=== PATIENT | male | born 1965 | race African-American/Black ===

== ENCOUNTER → 2018-09-07 | Day surgery (SDC) | payer MEDICARE, OTHER ==
[~2018-09-07] MED LIST: ATORVASTATIN PO; CITALOPRAM PO; CYCLOBENZAPRINE10 MG PO; FELODIPINE ER10 MG PO; FENTANYL CITRATE/PF 100MCG/2 ML INJ ONE; FUROSEMIDE40 MG PO; GABAPENTIN PO; HYOSCYAMINE SULFATE 0.5 MG/ML INJ ONE; LANTUS 3ML100 UNITS/ SQ; LIDOCAINE HCL 2% LOCAL INJ 5 ML SDV VIAL INJ ONE; MIDAZOLAM HCL 2 MG/2 ML VIAL ONE; NOVOLOG MI100 UNIT/1 SQ; PHENYLEPHRINE HCL 1% 10 MG/ML VIAL ONE; POTASSIUM CHLO20 ME1 PO; PROPOFOL IV EMULSION 10 MG/ML 50 ML VIAL ONE
--- OUTSIDE RECORDS SUMMARY | 2018-09-07 08:56 | XMS REPORT | Clinical Summary ---
Author Author [facility]uy [facility]anda[facility] Organization [facility] Address Unknown Phone Unavailable Care Team Providers Care Mangle Roller Name Role Phone Collette Valentino MD PCP Allergies Comments Active Allergy Reactions Severity Noted Date Lisinopril Anaphylaxis High 02/28/2017 Sulfa (Sulfonamide Anaphylaxis High 02/16/2017 Antibiotics) Medications End Date Status Medication Sig Dispensed Refills Start Date Active insulin ASPART (NovoLOG) Inject 40 0 100 unit/mL injection Units under the skin 3 (three) times a day before meals. Active gabapentin (NEURONTIN) Take 600 mg 0 600 mg tablet by mouth 3 (three) times a day. Active aspirin (ECOTRIN) 81 MG Take 81 mg by 0 enteric coated tablet mouth daily. Active cyclobenzaprine Take 10 mg by 0 (FLEXERIL) 10 mg tablet mouth 3 (three) times a day as needed for muscle spasms. Active oxyCODone (ROXICODONE) 15 Take 15 mg by 0 MG immediate release mouth 3 tablet (three) times a day as needed for moderate pain. Active atorvastatin (LIPITOR) 20 Take 20 mg by 0 MG tablet mouth nightly. Default OP ins Active cholecalciferol, vitamin Take 1,000 0 D3, (VITAMIN D3) 1,000 Units by unit tablet mouth daily. Active amLODIPine (NORVASC) 10 Take 10 mg by 0 mg tablet mouth every morning. Active furosemide (LASIX) 20 mg Take 20 mg by 0 tablet mouth 2 (two) times a day. Active insulin GLARGINE (LANTUS) Inject 60 0 100 unit/mL injection Units under (vial) the skin 2 (two) times a day. Active valsartan (DIOVAN) 40 MG Take 40 mg by 0 tablet mouth daily. Active losartan (COZAAR) 100 MG Take 100 mg 0 tablet by mouth 8 daily. 09/17/2018 Active insulin lispro (HumaLOG Inject 40 10 mL 0 U-100 Insulin) 100 Units under 9 unit/mL injection the skin 3 (three) times a day before meals for 30 days. 09/26/2017 Discontinued felodipine (PLENDIL) 10 Take 10 mg by 0 MG 24 hr tablet mouth daily. 09/26/2017 Discontinued citalopram (CeleXA) 20 MG Take 20 mg by 0 tablet mouth every morning. 10/26/2017 citalopram (CeleXA) 40 MG Take 1 tablet 30 tablet 0 tablet (40 mg total) 8 by mouth daily for 30 days. 04/12/2018 furosemide (LASIX) 40 mg Take 1 tablet 60 tablet 0 tablet (40 mg total) 8 by mouth 2 (two) times a day for 30 days. 06/23/2018 cephalexin (KEFLEX) 500 Take 1 28 capsule 0 MG capsule capsule (500 8 mg total) by mouth 4 (four) times a day for 7 days. 07/06/2018 clindamycin (CLEOCIN HCL) Take 1 40 capsule 0 300 MG capsule capsule (300 8 mg total) by mouth 4 (four) times a day for 10 days. 07/01/2018 methylPREDNISolone follow 21 tablet 0 (MEDROL DOSEPAK) 4 mg package 8 tablet directions Active Problems Problem Noted Date Chest pain 09/26/2017 Acute kidney injury 02/26/2017 Gastrointestinal hemorrhage associated with gastritis 02/17/2017 Rectal bleeding 01/18/2017 Encounters Care Team Description Date Type Specialty Tara Cox MD Rectal bleed (Primary Dx); Hyperglycemia 08/18/2018 Emergency Emergency Medicine Israel Heart MD Cellulitis, lip (Primary Dx); Angioedema of lips, initial encounter 06/26/2018 Emergency Emergency Medicine Singh Calvin MD Cellulitis of abdominal wall (Primary Dx); Abnormal CT scan 06/16/2018 Emergency Emergency Medicine Dinorah Portillo MD Lymphedema (Primary Dx); Essential hypertension 03/13/2018 Emergency Emergency Medicine Tamara Patterson DO Hyperglycemia (Primary Dx); Rectal bleeding 12/15/2017 Emergency Emergency Medicine Rob Abbasi MD Jamaluddin, Ahmed U., MD Chest pain, unspecified type (Primary Dx) 09/26/2017 Emergency General Internal Medicine after 09/06/2017 Family History Medical History Relation Name Comments Diabetes Maternal Grandfather Hypertension Maternal Grandfather Diabetes Maternal Grandmother Hypertension Maternal Grandmother Diabetes Mother Kidney disease Mother Stroke Mother Diabetes Paternal Grandfather Diabetes Paternal Grandmother Relation Name Status Comments Maternal Grandfather Maternal Grandmother Mother Paternal Grandfather Paternal Grandmother Social History Date Tobacco Use Types Packs/Day Years Used Quit: 02/16/2013 Former Smoker Cigarettes 0.5 30 Smokeless Tobacco: Never Used Alcohol Use Drinks/Week oz/Week Comments No Sex Assigned at Date Recorded Not on file Industry Job Start Date Occupation Not on file Not on file Not on file Travel End Travel History Travel Start No recent travel history available. Last Filed Vital Signs Time Taken Vital Sign Reading 08/18/2018 5:54 PM [facility] Blood Pressure 133/70 08/18/2018 5:54 PM [employer] [facility] Pulse 81 08/18/2018 1:35 PM [employer] Temperature 36.3 C (97.3 F) 08/18/2018 5:54 PM [employer] Respiratory Rate 16 08/18/2018 5:54 PM [employer]IAN Oxygen Saturation 100% - Inhaled Oxygen - Concentration 09/26/2017 5:00 AM NEWS [facility]IAN Weight 134 kg (294 lb 9.6 oz) 08/18/2018 1:14 PM [employer] [facility] Height 167.6 cm (5' 6") 09/26/2017 5:00 AM [employer] [facility]IAN Body Mass Index 47.55 Plan of Treatment Health Maintenance Due Date Last Done Comments SHINGLES VACCINES (1 of 2013 2) INFLUENZA VACCINE 03/14/2018 COLON CANCER SCREENING 08/18/2028 08/18/2018, 01/18/2017 Procedures Comments Procedure Name Priority Date/Time Associated Diagnosis POC GLUCOSE Routine 08/18/2018 5:36 PM NEWS [facility]IAN BETA HYDROXYBUTYRATE Routine 08/18/2018 4:05 PM NEWS [facility]IAN VENOUS BLOOD GAS Routine 08/18/2018 4:05 PM NEWS [facility]IAN OCCULT BLOOD, STOOL Routine 08/18/2018 2:44 PM [facility]IAN ESTIMATED GFR STAT 08/18/2018 2:43 PM NEWS [facility]IAN TYPE AND SCREEN STAT 08/18/2018 2:43 PM [employer] [facility]IAN LIPASE LEVEL STAT 08/18/2018 2:43 PM [employer] [facility]IAN COMPREHENSIVE METABOLIC STAT 08/18/2018 PANEL 2:43 PM NEWS [facility]IAN HC COMPLETE BLD COUNT STAT 08/18/2018 W/AUTO DIFF 2:[address] ABDOMEN PELVIS W STAT 06/16/2018 CONTRAST 12:06 PM CDT URINE CULTURE STAT 06/16/2018 10:10 AM CDT URINALYSIS SCREEN AND STAT 06/16/2018 MICROSCOPY, WITH REFLEX 10:09 AM CDT TO CULTURE ESTIMATED GFR STAT 06/16/2018 10:01 AM CDT LIPASE LEVEL STAT 06/16/2018 10:01 AM CDT AMYLASE LEVEL STAT 06/16/2018 10:01 AM CDT COMPREHENSIVE METABOLIC STAT 06/16/2018 PANEL 10:01 AM CDT HC COMPLETE BLD COUNT STAT 06/16/2018 W/AUTO DIFF 10:01 AM CDT ZZESTIMATED GFR STAT 03/13/2018 8:27 AM CDT B NATRIURETIC PEPTIDE STAT 03/13/2018 8:27 AM CDT TROPONIN STAT 03/13/2018 8:27 AM CDT COMPREHENSIVE METABOLIC STAT 03/13/2018 PANEL 8:27 AM CDT PARTIAL THROMBOPLASTIN STAT 03/13/2018 TIME (PTT) 8:27 AM CDT PROTHROMBIN TIME WITH INR STAT 03/13/2018 8:27 AM CDT HC COMPLETE BLD COUNT STAT 03/13/2018 W/AUTO DIFF 8:27 AM CDT BETA HYDROXYBUTYRATE STAT 03/13/2018 8:23 AM CDT XR CHEST 2 VW STAT 03/13/2018 8:20 AM CDT ECG 12-LEAD STAT 03/13/2018 8:06 AM CDT POC GLUCOSE Routine 12/15/2017 8:40 PM CDT ZZESTIMATED GFR STAT 12/15/2017 5:45 PM CDT LIPASE LEVEL STAT 12/15/2017 5:45 PM CDT COMPREHENSIVE METABOLIC STAT 12/15/2017 PANEL 5:45 PM CDT PARTIAL THROMBOPLASTIN STAT 12/15/2017 TIME (PTT) 5:45 PM CDT PROTHROMBIN TIME WITH INR STAT 12/15/2017 5:45 PM CDT HC COMPLETE BLD COUNT STAT 12/15/2017 W/AUTO DIFF 5:45 PM CDT TROPONIN STAT 09/26/2017 1:40 PM NEWS [facility]RARIAN ECG 12-LEAD Routine 09/26/2017 1:28 PM NEWS [facility]RARIAN TROPONIN Timed 09/26/2017 7:35 AM NEWS [facility]IAN URINALYSIS SCREEN AND STAT 09/26/2017 MICROSCOPY, WITH REFLEX 3:20 AM NEWS LIBRARIAN TO CULTURE GRAM STAIN STAT 09/26/2017 3:20 AM NEWS [facility]ARIAN URINE CULTURE STAT 09/26/2017 3:20 AM NEWS [facility]RARIAN ZZESTIMATED GFR STAT 09/26/2017 3:07 AM NEWS [facility]RARIAN TROPONIN STAT 09/26/2017 3:07 AM NEWS [facility]RARIAN CREATINE KINASE, TOTAL STAT 09/26/2017 (CPK) 3:07 AM NEWS [facility]RARIAN COMPREHENSIVE METABOLIC STAT 09/26/2017 PANEL 3:07 AM NEWS LIBRARIAN XR CHEST 2 VW STAT 09/26/2017 2:26 AM NEWS LIBRARIAN ECG ED PRELIMINARY Routine 09/26/2017 INTERPRETATION 2:11 AM NEWS LIBRARIAN B NATRIURETIC PEPTIDE STAT 09/26/2017 2:10 AM NEWS [facility]RARIAN PARTIAL THROMBOPLASTIN STAT 09/26/2017 TIME (PTT) 2:10 AM NEWS LIBRARIAN PROTHROMBIN TIME WITH INR STAT 09/26/2017 2:10 AM NEWS LIBRARIAN HC COMPLETE BLD COUNT STAT 09/26/2017 W/AUTO DIFF 2:10 AM NEWS LIBRARIAN ECG 12-LEAD STAT 09/26/2017 1:44 AM NEWS LIBRARIAN after 09/06/2017 Results * POC glucose (08/18/2018 5:36 PM NEWS LIBRARIAN) Only the most recent of 2 results within the time period is included. POC glucose 306 (H) 65 - 99 mg/dL [facility] Comment: [facility] RN Notified Meter ID: [id number] Rivet Machine Operator: Hunter Lloyd Performing Organization Address City/[facility] [place] [address] PATHOLOGY AND [facility] MEDICINE [address] * Beta hydroxybutyrate (08/18/2018 4:05 PM NEWS LIBRARIAN) Only the most recent of 2 results within the time period is included. Beta hydroxybutyrate 0.18 0.02 - 0.27 mmol/L [facility] Specimen Blood Performing Organization Address City/[facility]/[place] [address] PATHOLOGY AND [facility] MEDICINE [address] * Venous blood gas (08/18/2018 4:05 PM NEWS LIBRARIAN) pH, venous 7.36 7.32 - 7.42 [facility] pCO2, venous 49 45 - 51 mmHg [facility] pO2, venous 51 (H) 25 - 40 mmHg [facility] Base excess, venous 2 -2 - 2 mEq/L [facility] O2 saturation, venous 78 (H) 40 - 70 % [facility] Bicarbonate, venous 26.9 21.0 - 28.0 mmol/L [facility] Specimen Blood Performing Organization Address City/[facility] [place] [address] PATHOLOGY AND GENOMIC MEDICINE [address] * Occult blood, stool (08/18/2018 2:44 PM NEWS LIBRARIAN) Occult blood, stool Positive for Occult blood (A) [facility] Comment: [facility] Specimen Information Specimen Source: Stool Specimen Site: Nonpreserved Specimen Stool - Nonpreserved Performing Organization Address [facility] [place] [address] PATHOLOGY [address] * Estimated GFR (08/18/2018 2:43 PM NEWS LIBRARIAN) Only the most recent of 2 results within the time period is included. Estimated GFR >=90 mL/min/1.73 m2 [facility] Comment: [facility] CatergoryUnitsInte rpretation G1 >=90 Normal or high G2 60-89Mildly decreased [id number] Mildly to moderately decreased [id number] Moderately to severely decreased G4 15-29Severely decreased G5 <15Kidney failure The eGFR was calculated using the Chronic Kidney Disease Epidemiology Collaboration (CKD-EPI) equation. Interpretation is based on recommendations of the National Kidney Foundation-Kidney Disease Outcomes Quality Initiative (NKF-KDOQI) published in 2014. Specimen Plasma specimen Performing Organization Address City/[facility] [place] [address] PATHOLOGY AND GENOMIC MEDICINE [address] * CBC with platelet and differential (08/18/2018 2:43 PM NEWS LIBRARIAN) Only the most recent of 5 results within the time period is included. WBC 7.1 4.5 - 11.0 k/uL [facility] RBC 4.33 (L) 4.40 - 6.00 m/uL [facility] HGB 10.2 (L) 14.0 - 18.0 g/dL [facility] HCT 33.3 (L) 41.0 - 51.0 % [facility] MCV 76.9 (L) 82.0 - 100.0 fL [facility] MCH 23.6 (L) 27.0 - 34.0 pg [facility] MCHC 30.6 (L) 31.0 - 37.0 g/dL [facility] RDW - SD 43.5 37.0 - 55.0 fL [facility] MPV 11.0 6.9 - 11.0 fL [facility] Platelet count 216 150 - 400 K/uL [facility] Nucleated RBC 0.00 /100 WBC [facility] Neutrophils 61.3 39.0 - 69.0 % [facility] Lymphocytes 26.6 25.0 - 45.0 % [facility] Monocytes 9.3 0.0 - 10.0 % [facility] Eosinophils 1.4 0.0 - 5.0 % [facility] Basophils 1.0 0.0 - 1.0 % [facility] Immature granulocytes 0.4 0.0 - 1.0 % [facility] Specimen Blood Performing Organization Address City/[facility]/Zipcode Phone Number [place] [phone] [place] [address] PATHOLOGY AND GENOMIC MEDICINE [address] * Type and screen (08/18/2018 2:43 PM NEWS LIBRARIAN) ABO grouping A [facility] Rh type POS [facility] Antibody screen (gel) NEG [facility] Specimen Blood Performing Organization Address City/[facility]/[place] [address] PATHOLOGY AND GENOMIC MEDICINE [address] * Lipase level (08/18/2018 2:43 PM NEWS LIBRARIAN) Only the most recent of 3 results within the time period is included. Lipase 27 13 - 60 U/L [facility] Specimen Plasma specimen Performing Organization Address City/[facility] [place] [place] [address] PATHOLOGY AND GENOMIC MEDICINE [address] * Comprehensive metabolic panel (08/18/2018 2:43 PM NEWS LIBRARIAN) Only the most recent of 5 results within the time period is included. Sodium 132 (L) 135 - 148 mEq/L [facility] Potassium 4.7 3.5 - 5.0 mEq/L [facility] Chloride 95 (L) 98 - 112 mEq/L [facility] CO2 24 24 - 31 mEq/L [facility] Anion gap 13@ANIO 7 - 15 mEq/L [facility] BUN 14 6 - 20 mg/dL [facility] Creatinine 0.86 0.70 - 1.20 mg/dL [facility] Glucose 430 (HH) 65 - 99 mg/dL [facility] Comment: [facility] Critical GLU called with read bavk to Nataly Payne/[facility]. 08/18/201815:53 SLTXT Calcium 9.7 8.3 - 10.2 mg/dL [facility] Protein 8.4 (H) 6.3 - 8.3 g/dL [facility] Albumin 4.3 3.5 - 5.0 g/dL [facility] A/G ratio 1.0 0.7 - 3.8 [facility] Alkaline phosphatase 156 (H) 40 - 129 U/L [facility] AST 38 10 - 50 U/L [facility] ALT 33 5 - 50 U/L [facility] Total bilirubin 0.3 0.2 - 1.2 mg/dL [facility] Specimen Plasma specimen Performing Organization Address [facility] Phone Number [address] [place] [address] PATHOLOGY AND GENOMIC MEDICINE [place] [address] [facility] [place] [address] [facility] * CT Abdomen Pelvis W Contrast (06/16/2018 12:06 PM CDT) Narrative Performed At EXAMINATION:CT ABDOMEN PELVIS W CONTRAST [facility] CLINICAL HISTORY: 53 yearsMale possible abscess on RLQ abdominal wall TECHNIQUE: Multiple axial images of the abdomen and pelvis were obtained following intravenous administration of iodinated contrast. Sagittal and coronal computerized reformatted images were also obtained. CT imaging was performed with iterative reconstruction techniques and/or automated exposure control to reduce radiation dose. COMPARISON:To previous study from 01/17/2017 IMPRESSION: Abdomen: 1. No parenchymal abnormality is noted in the lung bases. Severe fatty infiltration is noted involving the liver, without evidence of a focal mass. 2.The spleen and the pancreas are normal in appearance. 3.The adrenal glands and both kidneys are normal in appearance. Pelvis: 1. Anastomotic lalita are noted at the rectosigmoid. There is no evidence pelvic mass or fluid collection. 2.There is infiltration of the skin surface overlying the right lower quadrant. A fluid collection is not appreciated. 3.No bowel distention is appreciated. Arthritic changes are noted involving the spine. [facility]-[id number] Procedure Note Interface, Radiology Results Incoming - 06/16/2018 12:12 PM CDT EXAMINATION: CT ABDOMEN PELVIS W CONTRAST CLINICAL HISTORY: 53 yearsMale possible abscess on RLQ abdominal wall TECHNIQUE: Multiple axial images of the abdomen and pelvis were obtained following intravenous administration of iodinated contrast. Sagittal and coronal computerized reformatted images were also obtained. CT imaging was performed with iterative reconstruction techniques and/or automated exposure control to reduce radiation dose. COMPARISON: To previous study from 01/17/2017 IMPRESSION: Abdomen: 1. No parenchymal abnormality is noted in the lung bases. Severe fatty infiltration is noted involving the liver, without evidence of a focal mass. 2. The spleen and the pancreas are normal in appearance. 3. The adrenal glands and both kidneys are normal in appearance. Pelvis: 1. Anastomotic lalita are noted at the rectosigmoid. There is no evidence pelvic mass or fluid collection. 2. There is infiltration of the skin surface overlying the right lower quadrant. A fluid collection is not appreciated. 3. No bowel distention is appreciated. Arthritic changes are noted involving the spine. [facility]-[id number] Performing Organization Address City/State/Zipcode Phone Number [place] [address] [place] [address] * Urine culture (06/16/2018 10:10 AM CDT) Only the most recent of 2 results within the time period is included. Urine culture SEE COMMENTComment: [facility] Bacteriuria screen negative. PATHOLOGY AND GENOMIC MEDICINE Performing Organization Address City/[facility]/Zipcode Phone Number [address] [address] PATHOLOGY AND GENOMIC MEDICINE * Urinalysis screen and microscopy, with reflex to culture (06/16/2018 10:09 AM CDT) Only the most recent of 2 results within the time period is included. Specimen site Clean catch [facility] OF PATHOLOGY AND GENOMIC MEDICINE Color, UA Straw [facility] OF PATHOLOGY AND GENOMIC MEDICINE Appearance, UA Clear [facility] PATHOLOGY AND GENOMIC MEDICINE Specific gravity, UA 1.003 1.001 - 1.030 [facility] PATHOLOGY AND GENOMIC MEDICINE pH, UA 5.0 5.0 - 9.0 [facility] PATHOLOGY AND GENOMIC MEDICINE Protein, UA Negative Negative [facility] PATHOLOGY AND GENOMIC MEDICINE Glucose, UA 3+ (A) Negative [facility] PATHOLOGY AND GENOMIC MEDICINE Ketones, UA Negative Negative [facility] PATHOLOGY AND GENOMIC MEDICINE Bilirubin, UA Negative Negative [facility] PATHOLOGY AND GENOMIC MEDICINE Blood, UA Negative Negative [facility] PATHOLOGY AND GENOMIC MEDICINE Nitrite, UA Negative Negative [facility] OF PATHOLOGY AND GENOMIC MEDICINE Urobilinogen, UA <2.0 <2.0 E.U./dL [facility] OF PATHOLOGY AND GENOMIC MEDICINE Leukocyte esterase, UA Negative Negative [facility] PATHOLOGY AND GENOMIC MEDICINE WBC, UA <1 0 - 1 /HPF [facility] PATHOLOGY AND GENOMIC MEDICINE RBC, UA 1 0 - 5 /HPF [facility] OF PATHOLOGY AND GENOMIC MEDICINE Bacteria, UA Few None seen [facility] OF PATHOLOGY AND GENOMIC MEDICINE Yeast, UA None seen [facility] PATHOLOGY AND GENOMIC MEDICINE Yeast with pseudohyphae, None seen [facility] UA PATHOLOGY AND GENOMIC MEDICINE Hyaline casts, UA 0-2 /LPF [facility] OF PATHOLOGY AND GENOMIC MEDICINE Specimen Urine Performing Organization Address City/[facility]/Zipcode Phone Number [address] [address] PATHOLOGY AND [employer] [facility] * Amylase level (06/16/2018 10:01 AM CDT) Amylase 11 13 - 73 U/L [facility] OF PATHOLOGY AND GENOMIC MEDICINE Specimen Plasma specimen Performing Organization Address City/[facility]/Zipcode Phone Number [address] [place] [address] PATHOLOGY AND [employer] [facility]IC[facility] * Estimated GFR (03/13/2018 8:27 AM CDT) Only the most recent of 3 results within the time period is included. GFR Non Af Amer >90 mL/min/1.[address] [facility] OF PATHOLOGY AND GENOMIC MEDICINE GFR Af Amer >90 mL/min/1.[address] [facility] Comment: PATHOLOGY AND Chronic kidney disease: <60 GENOMIC MEDICINE mL/min/1.73m2 Kidney failure: <15 mL/min/1.73m2 The estimated GFR is calculated from the IDMS-traceable Modification of Diet in Renal Disease Equation. The accuracy of the calculation is poor when the creatinine is normal. Calculated values >90 mL/min/1.73m2 are not reported. This equation has not been validated in children (<18 years), women, the elderly (>70 years), or ethnic groups other than Caucasians and Americans. Specimen Plasma specimen Performing Organization Address [facility] Phone Number [address] [place] [address] [address] [employer] * Troponin (03/13/2018 8:27 AM CDT) Only the most recent of 4 results within the time period is included. Troponin <0.30 0.00 - 0.30 ng/mL [facility] Comment: PATHOLOGY AND 0.11 - 1.49 GENOMIC MEDICINE ng/mlMay indicate increased risk of acute coronary syndrome. >=1.5 ng/ml Consistent with acute myocardial infarction. The diagnostic value of a single normal or non-diagnostic result is questionable.Serial samples at 2-6 hour intervals are required to rule out acute myocardial injury. Specimen Plasma specimen Performing Organization Address City/[facility]/[place] [address] [address] [employer] * Partial thromboplastin time, activated (03/13/2018 8:27 AM CDT) Only the most recent of 3 results within the time period is included. PTT 35.6 23.0 - 36.[address] [facility] Comment: PATHOLOGY AND PTT therapeutic range for [facility] MEDICINE unfractionated heparin is 61.0-112.0 seconds which corresponds to Anti-Xa 0.3-0.7 U/ml. Specimen Blood Performing Organization Address [facility] Phone Number [facility] [address] [place] [address] [address] [employer] * Prothrombin time with INR (03/13/2018 8:27 AM CDT) Only the most recent of 3 results within the time period is included. Prothrombin time 13.7 12.0 - 15.[address] [facility] PATHOLOGY AND [employer] MEDICINE INR 1.[address] [facility] Comment: PATHOLOGY AND The International Normalized [facility] Ratio (INR) is a therapeutic monitoring tool for patients who are stable on oral anticoagulant therapy. An INR of 2.0-3.0 is suggested for deep vein thrombosis/pulmonary embolism. Specimen Blood Performing Organization Address [facility] Phone Number [facility] OF [address] [place] [address]. [place] [address] [facility] * B natriuretic peptide (03/13/2018 8:27 AM CDT) Only the most recent of 2 results within the time period is included. BNP 82 0 - 100 pg/mL [facility] PATHOLOGY AND [employer] MEDICINE Specimen Blood Performing Organization Address [facility] Phone Number [facility] [address] [place] [address] [address] [employer] * XR Chest 2 Vw (03/13/2018 8:20 AM CDT) Only the most recent of 2 results within the time period is included. Narrative Performed At EXAMINATION:XR CHEST 2 VW [facility] CLINICAL HISTORY:Chest pain COMPARISON:September 26, 2017. FINDINGS: Lines and tubes: None. Heart and mediastinum: Cardiomediastinal silhouette is normal in contour. Lungs: No focal airspace disease, pleural effusion or pneumothorax. Bones: No acute abnormality. IMPRESSION: No acute abnormality. I personally reviewed the images and the resident's findings and agree with the final report. [facility]-[id number] Procedure Note Interface, Radiology Results Incoming - 03/13/2018 2:21 PM CDT EXAMINATION: XR CHEST 2 VW CLINICAL HISTORY: Chest pain COMPARISON: September 26, 2017. FINDINGS: Lines and tubes: None. Heart and mediastinum: Cardiomediastinal silhouette is normal in contour. Lungs: No focal airspace disease, pleural effusion or pneumothorax. Bones: No acute abnormality. IMPRESSION: No acute abnormality. I personally reviewed the images and the resident's findings and agree with the final report. [facility]-[id number] Performing Organization Address [facility]ode Phone Number [facility] [address] [place] [address] * ECG 12 lead (03/13/2018 8:06 AM CDT) Only the most recent of 3 results within the time period is included. Ventricular rate 100 [facility] Atrial rate 100 [facility] CO interval 208 [facility] QRSD interval 86 [facility] QT interval 344 [facility] QTC interval 443 [facility] P axis 1 52 [facility] QRS axis 1 -16 [facility] T wave axis 46 [facility] EKG impression Normal sinus rhythm-In [facility] automated comparison with ECG of -SEP-2017 13:28,-No significant change was found- Performing Organization Address [facility] Phone Number [facility] [address] [place] [address] * Gram stain (09/26/2017 3:20 AM NEWS LIBRARIAN) Gram stain result No WBC's or organisms seen. [facility] DEPARTMENT OF Comment: PATHOLOGY AND Specimen Information GENOMIC MEDICINE Specimen Source: Urine Specimen Site: Clean catch Specimen Urine Performing Organization Address [facility] Phone Number [facility] DEPARTMENT OF [address] [place] [address] PATHOLOGY AND GENOMIC MEDICINE * Creatine kinase, total (CPK) (09/26/2017 3:07 AM NEWS LIBRARIAN) Creatine kinase 363 (H) 39 - 308 U/L [facility] DEPARTMENT OF PATHOLOGY AND GENOMIC MEDICINE Specimen Plasma specimen Performing Organization Address [facility]/Zipcode Phone Number [address] [address] PATHOLOGY AND GENOMIC MEDICINE * ECG ED Preliminary Interpretation - NOT AN ORDER (09/26/2017 2:11 AM NEWS LIBRARIAN) Narrative Performed At Rob Abbasi MD 09/26/2017 10:41 PM ECG ED Preliminary Interpretation - Not an Order Performed by: ROB ABBASI Authorized by: ROB ABBASI ECG reviewed by ED Physician in the absence of a automotive refinisher: yes Interpretation: Interpretation: normal Rate: ECG rate:100 ECG rate assessment: normal Rhythm: Rhythm: sinus rhythm Ectopy: Ectopy: none QRS: QRS axis:Normal ST segments: ST segments:Normal T waves: T waves: normal after 09/06/2017 Insurance Payer Benefit Subscriber ID Type Phone Address Plan / Group [facility] DUAL xxxxxxxxx HMO COMPLETE MCR Advance Directives Patient has advance care planning documents, and code status on file. For more i nformation, please contact: Chuy Woodard [address] [place] [address] Date Inactivated Comments Code Status Date Activated 03/01/2017 5:34 PM Full Code 02/27/2017 12:43 AM Code Status decision reached by: Patient 01/19/2017 7:00 PM Full Code 01/18/2017 4:18 AM Code Status decision reached by: Patient
[2018-09-07 13:30] VITALS: BP 146/60
--- NOTE | 2018-10-01 05:04 | Operative Report ---
DATE OF PROCEDURE: September 07, 2018 PROCEDURES PERFORMED 1. Esophagogastroduodenoscopy with biopsies and esophageal dilatation. 2. Colonoscopy with polypectomy and biopsies. INDICATIONS FOR EGD: Dysphagia. INDICATIONS FOR COLONOSCOPY: Patient is status post colectomy with ileoanal anastomosis, now with bright red blood per rectum. MEDICATION: Patient was done under MAC. Please see anesthesiologist's note. PROCEDURE: With the patient in the left lateral decubitus position, the flexible fiberoptic Olympus gastroscope was introduced into the esophagus under direct visualization without any difficulty. There was some patchy erythema noted in the distal esophagus. There was a mild stricture noted at the GE junction that was dilated to a size 52-Kenyan Ortiz. The scope was then advanced with ease into the stomach. Mucosa overlying the antrum and the body revealed some patchy erythema and low-grade to moderate edema, and biopsies were obtained and sent to stain for H. pylori. The pylorus was of normal contour and shape. It was intubated with ease. The scope was advanced all the way to the 2nd portion of the duodenum. The scope was then withdrawn slowly. Mucosa overlying the proximal 2nd portion and the duodenal bulb appeared to be within normal limits. The scope was then withdrawn back into the stomach and retroflexed. The mucosa overlying the fundus and the cardia appeared to be within normal limits. The scope was then straightened out. The stomach was decompressed. The scope was subsequently withdrawn. Patient tolerated the procedure well. IMPRESSION 1. Distal esophagitis, mild. 2. Esophageal stricture at gastroesophageal junction dilated to size 52-Kenyan Ortiz. 3. Gastritis, biopsied. Biopsies sent to stain for Helicobacter pylori. PLAN: Follow up histology. Initiate Protonix 40 mg 1 p.o. q.a.m. a.c. Patient was then turned around. After adequate lubrication of the anal canal, the flexible fiberoptic Olympus colonoscope was inserted into the J-pouch and 4 polyps were hot biopsied and 1 polyp was snared. The scope was then advanced into the enteric loop proximal to the anastomosis and the mucosa overall appeared to be within normal limits. Biopsies were obtained. The scope was then withdrawn slowly and it was retroflexed into the pouch and small internal hemorrhoids were noted, none of which were actively bleeding. The scope was then straightened out. It was subsequently withdrawn. Patient tolerated the procedure well. IMPRESSION 1. Polyps in the J-pouch, 4 hot biopsied and 1 snared. Small bowel proximal to the anastomosis appeared to be within normal limits. Biopsies were obtained. 2. Small internal hemorrhoids, none actively bleeding. PLAN: Follow up histology. Timing of followup colonoscopy pending pathology report. Job#: [id number] [place]
== END | disposition home or self-care (01) ==
LOC: ENDO 08:54
PROVIDERS: ATTEND Internal Medicine Gastroenterology
DX: K22.2 Esophageal obstruction (principal); D12.0 Benign neoplasm of cecum; D12.9 Benign neoplasm of anus and anal canal; K29.70 Gastritis, unspecified, without bleeding; K52.9 Noninfective gastroenteritis and colitis, unspecified; K20.9 Esophagitis, unspecified; K21.9 Gastro-esophageal reflux disease without esophagitis; K64.8 Other hemorrhoids; Z90.49 Acquired absence of other specified parts of digestive tract; Z98.0 Intestinal bypass and anastomosis status; G62.9 Polyneuropathy, unspecified; I10 Essential (primary) hypertension; E11.9 Type 2 diabetes mellitus without complications; Z88.1 Allergy status to other antibiotic agents; Z88.2 Allergy status to sulfonamides; Z88.8 Allergy status to other drugs, medicaments and biological substances; Z01.810 Encounter for preprocedural cardiovascular examination; Z79.4 Long term (current) use of insulin; Z68.41 Body mass index [BMI] 40.0-44.9, adult; Z80.0 Family history of malignant neoplasm of digestive organs
CPT/HCPCS: 36415; 43239; 43450; 45380; 45384; 45385; 82948; 93005; J1980; J2001; J2250; J2370; J2704